=== PATIENT | female | born 1975 | race Caucasian/White ===

== ENCOUNTER → 2020-08-21 17:19 | Outpatient (CLI) | payer BC, SELFPAY ==
--- NOTE | ~2020-08-21 | MM_ITS ---
EXAMINATION: MM screening [facility] BI w kendal HISTORY: Screening mammogram TECHNIQUE: Craniocaudal and mediolateral oblique 3-D tomosynthesis images were obtained and synthetic 2-D images were generated. CAD analysis was submitted and interpreted. COMPARISON: 08/25/2018, 07/26/2017, 07/22/2016 BREAST PARENCHYMAL COMPOSITION: There are scattered areas of fibroglandular density. FINDINGS: There is no evidence of suspicious mass, calcification, or architectural distortion to sugg est malignancy in either breast. There has been no suspicious interval change. IMPRESSION: 1. No mammographic evidence of malignancy. 2. Recommend routine screening mammography in one year. BI-RADS Category 1: Negative Reviewed, dictated and finalized at location A.
== END ==
PROVIDERS: PCP Family Medicine; Visit Provider Obstetrics & Gynecology
DX: Z12.31 Encounter for screening mammogram for malignant neoplasm of breast (principal)
CPT/HCPCS: 77063; 77067

== ENCOUNTER → 2022-08-26 15:04 | Outpatient (CLI) | payer OTHER, SELFPAY ==
--- NOTE | ~2022-08-26 | MM_ITS ---
EXAMINATION: MM screening [facility] w kendal HISTORY: Screening TECHNIQUE: Craniocaudal and mediolateral oblique 3-D tomosynthesis images were obtained and synthetic 2-D images were generated. CAD analysis was submitted and interpreted. COMPARISON: Comparison to multiple prior studies sequentially, with oldest reviewed study dated 07/22. BREAST PARENCHYMAL COMPOSITION: The breasts are heterogeneously dense, which may obscure small masses FINDINGS: Bilateral breast asymmetries are stable. There is no evidence of suspicious mass, calcifica tion, or architectural distortion to suggest malignancy in either breast. There has been no suspiciou s interval change. IMPRESSION: 1. No mammographic evidence of malignancy. 2. Recommend routine screening mammography in one year. BI-RADS Category 1: Negative Reviewed, dictated and finalized at location A.
== END ==
PROVIDERS: PCP Family Medicine; Visit Provider Family Medicine
DX: Z12.31 Encounter for screening mammogram for malignant neoplasm of breast (principal)
CPT/HCPCS: 77063; 77067

== ENCOUNTER 2023-11-15 02:47 | Day surgery (SDC) | payer BC, SELFPAY ==
[2023-10-20 10:36] VITALS: BMI 25.8
--- NOTE | 2023-11-12 09:18 | SUR.PREOP ---
Patient called regarding upcoming procedure. Reviewed preop instructions, appointment times, and procedure prep.
[2023-11-15 07:58] VITALS: BP 95/75; PULSE 74; RESP 16; TEMP 36.5; O2SAT 100; BMI 25.7
[2023-11-15] MEDS: LACTATED RINGERS 1,000 ML 150 ML IV CONT (08:18)
--- NOTE | 2023-11-15 08:56 | WPDANESEPPF ---
Anes - Initial Pre Proc Eval Procedure: Operation Date: 11/15/23 09:00 Proposed Procedures p Screening Colonoscopy - Antonino Goodrich MD Date/Time: 11/15/23 08:56 Surgeon: Antonino Goodrich MD Pre Op Diagnosis: neoplasm screening Patient Data Age: 47 Gender: F Height: 1.65 m Weight: 70 kg Last Vital Signs Temp 97.7 F 11/15/23 07:58 Pulse 74 11/15/23 07:58 Resp 16 11/15/23 07:58 BP 95/75 L 11/15/23 07:58 Pulse Ox 100 11/15/23 07:58 O2 Del Method Room Air 11/15/23 07:58 Allergies Allergy/AdvReac Type Severity Reaction Status Date / Time No Known Allergies Allergy Verified 11/15/23 08:05 Home Medications Medication Instructions Recorded Confirmed Type fluticasone propionate 50 1 spray intranasal DAILY 03/19/21 11/15/23 History mcg/actuation nasal spray,suspension (Flonase Allergy Relief) alprazolam 0.25 mg tablet 0.25 mg PO QHS PRN Anxiety 04/08/23 11/15/23 History melatonin 5 mg tablet 5 mg PO QHS PRN Sleep 04/08/23 11/15/23 History rosuvastatin 10 mg tablet (Crestor) 10 mg PO DAILY #90 tabs 08/17/23 11/15/23 Rx Patient hx anesthesia problems: none Family hx anesthesia problems: none Results Review: All pre-operative results and documents have been reviewed as part of the pre-operative evaluation. [facility] Past Medical History Medical History H/O gestational diabetes mellitus, not currently Hyperlipidemia, unspecified Vitamin D deficiency Family History Family History Father Family history of rheumatoid arthritis Family history of elevated blood lipids Family history of malignant melanoma Family history of type 2 diabetes mellitus Sibling Patient's brother is in good health Mother Family history of elevated blood lipids Grandparent Carcinoma of colon Malignant neoplasm of prostate Social History Social History (Updated 04/08/23 @ 08:01 by Chiquita Nascimento CMA) Smoking status: Never smoker Second hand tobacco smoke exposure: No Alcohol intake: never Substance use: never Substance use type: does not use Lack of Transportation: No Lack of Food: Never True Current Housing: I Have Housing Concerned About Future Housing: No Difficulty Paying Gas/Electric Bills: No Difficulty Paying for Meds: No Currently Unemployed: No Difficulty w/ Childcare or Family Care: No Living arrangements: with family Occupation/Education: occupation 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 Informed Consent: The patient's anesthetic plan and its attendant risks and benefits were discussed with the patient/family/POA. Questions were solicited and answers provided to the satisfaction of the patient/family/POA.
--- NOTE | 2023-11-15 09:19 | PM.HPGS ---
History of Present Illness History of Present Illness Consent: Risks, benefits, and alternatives have been discussed and questions answered. Patient agrees to proceed with procedure. Chief complaint: neoplasm screening Narrative: Ella Mckeon is a 47 year old female here for first screening colonoscopy Review of Systems Constitutional: Constitutional: Denies headache(s) and Denies weakness Eyes: Eyes: Denies blurry vision ENT: Reports Normal hearing present, Denies headache(s) and Denies neck pain Cardiovascular: Cardiovascular: Denies chest pain and Denies dyspnea Respiratory: Respiratory: Denies dyspnea Gastrointestinal: Gastrointestinal: Reports no additional gastrointestinal complaints Genitourinary: Genitourinary: Denies dysuria Musculoskeletal: Musculoskeletal: Denies neck pain Integumentary/Breasts: Skin/Breast: Denies dry skin Neurologic: Reports Normal hearing present, Denies headache(s) and Denies weakness Psychiatric: Psychiatric: Denies anxiety Endocrine: Endocrine: Denies change in body appearance Hematologic/Lymphatic: Hematologic/Lymphatic: Denies easy bleeding Allergic/Immunologic: Allergic/Immunologic: Denies urticaria PMF Past Medical History Medical History (Updated 11/15/23 @ 09:20 by Antonino Goodrich MD) Colon cancer screening H/O gestational diabetes mellitus, not currently Hyperlipidemia, unspecified Vitamin D deficiency Family History Family History Father Family history of rheumatoid arthritis Family history of elevated blood lipids Family history of malignant melanoma Family history of type 2 diabetes mellitus Sibling Patient's brother is in good health Mother Family history of elevated blood lipids Grandparent Carcinoma of colon Malignant neoplasm of prostate Social History Social History (Updated 04/08/23 @ 08:01 by Chiquita Nascimento [facility]) Smoking status: Never smoker Second hand tobacco smoke exposure: No Alcohol intake: never Substance use: never Substance use type: does not use Lack of Transportation: No Lack of Food: Never True Current Housing: I Have Housing Concerned About Future Housing: No Difficulty Paying Gas/Electric Bills: No Difficulty Paying for Meds: No Currently Unemployed: No Difficulty w/ Childcare or Family Care: No Living arrangements: with family Occupation/Education: occupation 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) Spiritual care concerns: No Meds Home Medications and Allergies Home Medications Medication Instructions Recorded Confirmed Type fluticasone propionate 50 1 spray intranasal DAILY 03/19/21 11/15/23 History mcg/actuation nasal spray,suspension (Flonase Allergy Relief) alprazolam 0.25 mg tablet 0.25 mg PO QHS PRN Anxiety 04/08/23 11/15/23 History melatonin 5 mg tablet 5 mg PO QHS PRN Sleep 04/08/23 11/15/23 History rosuvastatin 10 mg tablet (Crestor) 10 mg PO DAILY #90 tabs 08/17/23 11/15/23 Rx Allergies Allergy/AdvReac Type Severity Reaction Status Date / Time No Known Allergies Allergy Verified 11/15/23 08:05 Vital Signs Vital Signs - 24 hr 11/15/23 07:58 Temperature 97.7 F Pulse Rate 74 Respiratory Rate 16 Blood Pressure 95/75 L Pulse Oximetry 100 Oxygen Delivery Room Air Exam Const: General: comfortable and no acute distress HENMT: Face/Nose/Sinus: Normal nares present Eyes: General: appearance normal, both eyes and all related structures Neck: Neck: no JVD Resp: Auscultation: clear to auscultation bilaterally Cardio: Rate: regular rate Rhythm: regular rhythm GI: Inspection: non-distended GI Palp: Yes Soft to palpation Skin: General skin exam: normal color Neuro: General: gait normal Speech: normal speech Extrem: General: normal to inspection Psych: Mental Status: mental status grossly n
[2023-11-15 09:37] VITALS: BP 138/113; PULSE 66; RESP 20; O2SAT 100
[2023-11-15 09:47] VITALS: BP 93/57; PULSE 80; RESP 20; O2SAT 100
[2023-11-15 09:57] VITALS: BP 98/64; PULSE 80; RESP 20; O2SAT 100
== END 2023-11-15 10:00 | disposition home or self-care (01) ==
PROVIDERS: PCP Family Medicine; Visit Provider Internal Medicine Gastroenterology
PROC: 0DJD8ZZ Inspection of Lower Intestinal Tract, Via Natural or Artificial Opening Endoscopic (ICD-10-PCS; CPT 45378; principal; 2023-11-15 09:00)
DX: Z12.11 Encounter for screening for malignant neoplasm of colon (principal); K64.8 Other hemorrhoids; E78.5 Hyperlipidemia, unspecified; E55.9 Vitamin D deficiency, unspecified; Z80.8 Family history of malignant neoplasm of other organs or systems; Z80.0 Family history of malignant neoplasm of digestive organs; Z80.42 Family history of malignant neoplasm of prostate
CPT/HCPCS: 45378; J2704; J7120

== ENCOUNTER 2025-10-04 12:34 | Outpatient (CLI) | payer BC, SELFPAY ==
--- NOTE | ~2025-10-04 | MM_ITS ---
EXAMINATION: MM screening [facility] w kendal HISTORY: Screening. TECHNIQUE: Craniocaudal and mediolateral oblique 3-D tomosynthesis images were obtained and synthetic 2-D images were generated. CAD analysis was submitted and interpreted. COMPARISON: 2021, 2019, and 2017. BREAST PARENCHYMAL COMPOSITION: Dense: The breasts are heterogeneously dense FINDINGS: No suspicious masses are seen. There are no suspicious calcifications. No unexplained architectural distortion is seen. There are no skin or nipple abnormalities identified. There is no adenopathy seen on the images submitted. IMPRESSION: No mammographic evidence to suggest malignancy is seen. The patient may return to screening mammography as per ACR guidelines. BI-RADS 1 - Negative. Reviewed, dictated and finalized at location C. HELPER
== END 2025-10-04 12:35 | disposition home or self-care (01) ==
PROVIDERS: PCP Student in an Organized Health Care Education/Training Program; Visit Provider Student in an Organized Health Care Education/Training Program
DX: Z12.31 Encounter for screening mammogram for malignant neoplasm of breast (principal)
CPT/HCPCS: 77063; 77067